=== PATIENT | female | born 1945 | race Caucasian/White ===

== ENCOUNTER → 2017-04-27 | Outpatient (CLI) | payer MEDICARE, OTHER ==
[~2017-04-27] MED LIST: NORVASC; QUINIDINE SULF200 MG; VICODIN 5/1 TAB 5/50 PO
--- NOTE | ~2017-04-27 | CR181 ---
[facility] A Service of [facility] & [facility] RADIOLOGY TEXT RESULTS PATIENT: DAIJA HASSAN LOCATION: [facility] : 41 UNIT #: [id number] AGE: [address]: MAGALIE ALEMAN MD (INT MED) SEX: F ORDER DR: [id number] [facility] [address] [place], [place] [address] [id number] O MR#: [id number] Acc #: [id number] NAME: DAIJA HASSAN : 1945 SEX: F STUDY DATE/TIME: 04/27/2017 UNIT: [facility] ROOM: STUDY DESCRIPTION: CR Lumbar Spine 2 or 3 Views Attending Physician: Magalie Aleman M.D. Referring Physician: Magalie Aleman M.D. Ordering Physician: Magalie Aleman M.D. Primary Care Physician: Magalie Aleman M.D. MEDICAL IMAGING REPORT This report is preliminary unless electronic signature is present EXAM Lumbar spine series 04/27/2017 09:06 hours HISTORY Low back pain and right hip pain for 1 year, worsening over the past month. No reported injury. COMPARISON CT angiogram abdomen and pelvis 05/26/2016 FINDINGS AP and lateral views, lumbar spine, and a coned lateral view of the lumbosacral junction were performed. There is underlying diffuse osteopenia with moderate leftward scoliosis with Reese angle measuring 34.4 degrees from the superior endplate of L1 to the superior endplate of L5. There is secondary degenerative change. There is mild leftward subluxation of L2 relative to L1. This alignment is similar to the coronal reconstructions of CT abdomen and pelvis, 05/26/2016. The lateral view demonstrates multilevel disc height loss and endplate spurring with severe multilevel facet arthropathy. Findings are similar to the sagittal reconstructions, 05/26/2016. IMPRESSION 1. There is leftward scoliosis with Reese angle of [address] scan 05/26/2016. There is multilevel degenerative disc disease and facet arthropathy, which is severe similar to 05/26/2016. There is no compression fracture. 2. There is mild leftward subluxation of L2 relative to L1, also unchanged. [facility] A Service of [facility] & [facility] RADIOLOGY TEXT RESULTS PATIENT: DAIJA HASSAN LOCATION: [facility] #: [id number] : 41 UNIT #: [id number] AGE: [address]: MAGALIE ALEMAN MD (INT MED) SEX: F ORDER DR: Dictated by... Nichelle Rose M.D. THIS IS AN ELECTRONICALLY VERIFIED REPORT Nichelle Rose M.D. at 04/27/2017 4:01 PM MICHAEL/rafita TD: 04/27/2017 13:44 JOB #: [id number] MEDICAL IMAGING REPORT Page 1 of 1 COPY
--- NOTE | ~2017-04-27 | CR151 ---
[facility] A Service of [facility] RADIOLOGY TEXT RESULTS PATIENT: DAIJA HASSAN LOCATION: [facility] : 41 UNIT #: [id number] AGE: [address]: MAGALIE ALEMAN MD (INT MED) SEX: F ORDER DR: [id number] [facility] [address] [place], [place] [address] [id number] O MR#: [id number] Acc #: [id number] NAME: DAIJA HASSAN : 1945 SEX: F STUDY DATE/TIME: 04/27/2017 UNIT: [facility] ROOM: STUDY DESCRIPTION: CR Hip Min 2 Views Rt Attending Physician: Magalie Aleman M.D. Referring Physician: Magalie Aleman M.D. Ordering Physician: Magalie Aleman M.D. Primary Care Physician: Magalie Aleman M.D. MEDICAL IMAGING REPORT This report is preliminary unless electronic signature is present EXAM Right hip 04/27/2017 at 09:06 hours HISTORY Low back pain and right hip pain intermittently for 1 year worsening over the past month. HISTORY Iliac aneurysm and scoliosis. COMPARISON CT angiogram abdomen and pelvis, 05/26/2016 FINDINGS AP pelvis and frog lateral view right hip demonstrate no joint space loss or spurring at the hips. The bones appear mildly, diffusely osteopenic with no fracture. IMPRESSION Osteopenia with no fracture or significant degenerative change at either hip. Sacroiliac joints demonstrate mild spurring. Dictated by... Nichelle Rose M.D. THIS IS AN ELECTRONICALLY VERIFIED REPORT Nichelle Rose M.D. at 04/27/2017 4:01 PM MICHAEL/joel TD: 04/27/2017 13:13 JOB #: [id number] [facility] A Service of [facility] RADIOLOGY TEXT RESULTS PATIENT: DAIJA HASSAN LOCATION: [facility] : 41 UNIT #: [id number] AGE: [address]: MAGALIE ALEMAN MD (INT MED) SEX: F ORDER DR: MEDICAL IMAGING REPORT Page 1 of 1 COPY
== END | disposition home or self-care (01) ==
LOC: CRAD 08:48
DX: M54.5 Low back pain (principal); M25.551 Pain in right hip; M85.851 Other specified disorders of bone density and structure, right thigh; M76.891 Other specified enthesopathies of right lower limb, excluding foot; M41.9 Scoliosis, unspecified; M51.36 Other intervertebral disc degeneration, lumbar region; M47.816 Spondylosis without myelopathy or radiculopathy, lumbar region; M43.5X6 Other recurrent vertebral dislocation, lumbar region
CPT/HCPCS: 72100; 73502